=== PATIENT | male | born 1925 | race Caucasian/White ===

== ENCOUNTER 2017-03-22 15:24 | Inpatient (IN) ==
--- NOTE | 2017-03-22 16:04 | Emergency Department Note ---
Disposition Clinical Impression: Community acquired pneumonia, Aspiration pneumonia Disposition: Admitted As Inpatient Condition: Fair Referrals: Nazario Rice MD [Primary Care Provider] - Forms: ED Satisfaction Letter Time of Disposition: 18:12 ([facility]) SOB HPI - General Chief Complaint: ED Shortness of Breath/Dyspnea Stated Complaint: SOB Time Seen by Provider: 03/22/17 15:30 Source: EMS Mode of arrival: EMS Limitations: age, other Nursing Notes Reviewed: Yes Vital Signs Reviewed: Yes - History of Present Illness Elderly male sent in from a local nursing care facility possible aspiration versus pneumonia has a history of such in the past patient is nonverbal and unable to provide me with any history has been sent in by the nursing care facility they contacted the family physician in charge of him and he asked that patient be sent in to evaluate Pt Subjective Complaint: shortness of breath, cough Onset (ago): Just [employer] Context: other (Hx of aspiration) Severity: moderate Consistency/Duration: constant Improves with: nothing Worsens with: lying flat Known history of: recurrent pneumonia, aspiration pneumonia Associated symptoms: Reports: fever, cough, wheezing Treatment prior to arrival: oxygen Cough present: Yes Cough Description: Involuntary, Non-Productive Cough Frequency: Intermittent Sputum production: No Sputum Amount: Small Sputum Color: Yellow - Related Data Home Medications Medication Instructions Recorded Confirmed Acetaminophen [Tylenol] 650 mg PO Q4H PRN 06/06/16 03/22/17 Aspirin Enteric Coated [Aspirin EC] 81 mg PO DAILY 06/06/16 03/22/17 Cholestyramine 4 gm PO 0700,1600 06/06/16 03/22/17 Diltiazem HCl [Diltiazem 24Hr Cd] 120 mg PO 0700 06/06/16 03/22/17 Losartan [Cozaar] 25 mg PO 0700 06/06/16 03/22/17 Lovastatin [Mevacor] 20 mg PO 0700 06/06/16 03/22/17 Metoprolol [Lopressor] 25 mg PO 0700,1600 06/06/16 03/22/17 Sitagliptin Phos/Metformin HCl 1 each PO 0700,1600 06/06/16 03/22/17 [Janumet 50-1,000 mg Tablet] Warfarin [Coumadin] 1.5 mg PO 2XW 03/22/17 03/22/17 Warfarin [Coumadin] 2 mg PO 5XW 03/22/17 03/22/17 Allergies Allergy/AdvReac Type Severity Reaction Status Date / Time No Known Allergies Allergy Verified 06/06/16 11:25 Limitations: ROS unobtainable due to patients medical condition (Provided By the retirement) Constitutional: Reports: fever ENT ED: Reports: congestion Respiratory: Reports: cough, dyspnea, sputum production Past Medical History - Past Medical History Source: old records reviewed, nursing notes reviewed Medical history: Reports: atrial fibrillation, COPD, coronary artery disease, dementia, diabetes, GERD, hyperlipidemia, hypertension, other Surgical history: Reports: cataract, other Psychiatric history: Reports: depression - Social History Smoking Status: Never smoker Smokeless Tobacco Status: No Alcohol use: Reports: unknown Drug use: Reports: none Physical Exam - General Limitations: age, other General appearance: alert, in no apparent distress - Head Head exam: atraumatic, normocephalic, normal inspection - Eye Eye exam: Present: normal appearance, EOMI - ENT ENT exam: normal exam, normal oropharynx, mucous membranes moist, TM's normal bilaterally, normal external ear exam - Neck Neck exam: Present: normal inspection, full ROM, trachea midline - Chest Chest inspection: Present: normal inspection, symmetric chest wall rise - Respiratory Respiratory exam: Present: wheezes, prolonged expiratory phase, other (Wet raspy cough intermittent) - Cardiovascular Cardiovascular exam: Present: tachycardia, normal heart sounds - Abdominal Exam Abdominal exam: Present: soft, Non-Tender, normal bowel sounds. Absent: mass, pulsatile mass - Extremities Exam Extremities exam: Present: normal inspection, full ROM, normal capillary refill , pedal edema. Absent: tenderness, joint swelling, calf tenderness - Expanded Lower Extremity Exam Neurovascular/Tendon exam: Present: normal capillary refill, normal fine/light touch Gait: observed and normal - Back Exam Back exam: Present: normal inspection, full ROM. Absent: muscle spasm - Neurological Exam Neurological exam: Present: alert, oriented X3, CN II-XII intact, normal gait - Psychiatric Psychiatric exam: Present: normal affect, normal mood - Skin Skin exam: Present: warm, dry, intact, normal color Course Course Narrative: Patient was seen and examined patient was given aerosol treatments chest x-ray laboratory data was done with the results patient was given IV antibiotics admitted for observation transferred to same day surgery center as discussed case with Dr. Parikh Vital Signs Temperature 101.3 F H 03/22/17 15:27 Pulse Rate 110 03/22/17 15:27 Respiratory Rate 19 03/22/17 15:27 Blood Pressure 131/71 03/22/17 15:27 O2 Sat by Pulse Oximetry 94 03/22/17 15:27 Temperature 101.8 F H 03/22/17 17:01 Pulse Rate 111 03/22/17 18:08 Respiratory Rate 18 03/22/17 18:08 Blood Pressure 126/88 03/22/17 18:08 O2 Sat by Pulse Oximetry 98 03/22/17 18:08 Oxygen Delivery Oxygen Delivery Room Air Shortness of Breath/Dyspnea - MDM Narrative Medical decision making narrative: Aspiration pneumonia - Differential Diagnosis Likely: acute exacerbation of chronic obstructive airways disease, pneumonia - Medical Records Medical records reviewed: Yes I reviewed the patient's medical records. - Lab Data Lab results reviewed: Yes I reviewed the patient's lab results. Result diagrams: 03/22/17 15:58 03/22/17 15:58 Lab Results 03/22/17 03/22/17 03/22/17 Range/Units 15:58 15:58 15:58 WBC (4.3-11.1) K/mcL RBC (4.19-5.50) M/mcL Hgb (12.9-16.9) g/dL Hct (37.5-50.1) % MCV (83.0-100.0) fL MCH (28.0-33.3) pg MCHC (31.6-35.5) g/dL RDW (11.5-14.5) % Plt Count (140-400) K/mcL MPV (9.4-12.4) fL Immature Gran % (0-4) % Seg Neutrophils % % Lymphocytes % % Monocytes % % Eosinophils % % Basophils % % Neutrophils # (1.6-8.9) K/mcL Lymphocytes # (0.6-4.6) K/mcL Monocytes # (0.0-1.3) K/mcL Eosinophils # (0.0-0.6) K/mcL Basophils # (0.0-0.2) K/mcL PT (9.4-12.1) Seconds INR APTT 35.4 (26.0-36.0) Seconds Sodium 139 (136-145) mEq/L Potassium 4.1 (3.5-4.5) mEq/L Chloride 107 (98-109) mEq/L Carbon Dioxide 23 (19-29) mEq/L BUN 20 (8-26) mg/dL Creatinine 0.87 (0.72-1.25) mg/dL Est GFR ( Amer) > 60 (> 60) Est GFR (Non-Af Amer) > 60 (> 60) BUN/Creatinine Ratio 23 (6-26) Glucose 169 H (70-99) mg/dL Calculated Osmolality 295 (280-300) Lactic Acid (0.5-2.2) mmol/L Calcium 9.0 (8.6-10.8) mg/dL Magnesium (1.6-2.6) mg/dL Troponin I (0-0.03) ng/mL B-Natriuretic Peptide 320 H (0-100) pg/mL TSH (0.350-4.840) mcIU/mL 03/22/17 03/22/17 03/22/17 Range/Units 15:58 15:58 15:58 WBC 8.7 (4.3-11.1) K/mcL RBC 3.45 L (4.19-5.50) M/mcL Hgb 10.9 L (12.9-16.9) g/dL Hct 32.2 L (37.5-50.1) % MCV 93.3 (83.0-100.0) fL MCH 31.6 (28.0-33.3) pg MCHC 33.9 (31.6-35.5) g/dL RDW 13.2 (11.5-14.5) % Plt Count 237 (140-400) K/mcL MPV 10.7 (9.4-12.4) fL Immature Gran % 0.5 (0-4) % Seg Neutrophils % 86.5 % Lymphocytes % 3.7 % Monocytes % 9.0 % Eosinophils % 0.1 % Basophils % 0.2 % Neutrophils # 7.5 (1.6-8.9) K/mcL Lymphocytes # 0.3 L (0.6-4.6) K/mcL Monocytes # 0.8 (0.0-1.3) K/mcL Eosinophils # 0.0 (0.0-0.6) K/mcL Basophils # 0.0 (0.0-0.2) K/mcL PT 26.4 H (9.4-12.1) Seconds INR 2.4 APTT (26.0-36.0) Seconds Sodium (136-145) mEq/L Potassium (3.5-4.5) mEq/L Chloride (98-109) mEq/L Carbon Dioxide (19-29) mEq/L BUN (8-26) mg/dL Creatinine (0.72-1.25) mg/dL Est GFR ( Amer) (> 60) Est GFR (Non-Af Amer) (> 60) BUN/Creatinine Ratio (6-26) Glucose (70-99) mg/dL Calculated Osmolality (280-300) Lactic Acid (0.5-2.2) mmol/L Calcium (8.6-10.8) mg/dL Magnesium 1.5 L (1.6-2.6) mg/dL Troponin I (0-0.03) ng/mL B-Natriuretic Peptide (0-100) pg/mL TSH 1.442 (0.350-4.840) mcIU/mL 03/22/17 03/22/17 Range/Units 15:58 15:58 WBC (4.3-11.1) K/mcL RBC (4.19-5.50) M/mcL Hgb (12.9-16.9) g/dL Hct (37.5-50.1) % MCV (83.0-100.0) fL MCH (28.0-33.3) pg MCHC (31.6-35.5) g/dL RDW (11.5-14.5) % Plt Count (140-400) K/mcL MPV (9.4-12.4) fL Immature Gran % (0-4) % Seg Neutrophils % % Lymphocytes % % Monocytes % % Eosinophils % % Basophils % % Neutrophils # (1.6-8.9) K/mcL Lymphocytes # (0.6-4.6) K/mcL Monocytes # (0.0-1.3) K/mcL Eosinophils # (0.0-0.6) K/mcL Basophils # (0.0-0.2) K/mcL PT (9.4-12.1) Seconds INR APTT (26.0-36.0) Seconds Sodium (136-145) mEq/L Potassium (3.5-4.5) mEq/L Chloride (98-109) mEq/L Carbon Dioxide (19-29) mEq/L BUN (8-26) mg/dL Creatinine (0.72-1.25) mg/dL Est GFR ( Amer) (> 60) Est GFR (Non-Af Amer) (> 60) BUN/Creatinine Ratio (6-26) Glucose (70-99) mg/dL Calculated Osmolality (280-300) Lactic Acid 1.1 (0.5-2.2) mmol/L Calcium (8.6-10.8) mg/dL Magnesium (1.6-2.6) mg/dL Troponin I 0.00 (0-0.03) ng/mL B-Natriuretic Peptide (0-100) pg/mL TSH (0.350-4.840) mcIU/mL - Radiology Data Radiology results reviewed: Yes I reviewed the patient's radiology results. ITS Impressions Chest X-Ray 03/22/17 15:31 IMPRESSION: 1. Unchanged bibasilar airspace disease likely due to scarring, but cannot exclude underlying pneumonia. D/ / Chaitanya Villa MD / Chaitanya Villa MD Interpreting Provider: Chaitanya Villa MD - EKG Data EKG attestation: Yes I reviewed and interpreted this EKG. EKG results narrative: Sinus tach rate 109 KS 163 QRS 102 QT 301 axis -58 Critical Care Time Critical Care Time: No
[2017-03-22 16:08] LABS: Basophils % 0.2 %; Eosinophils % 0.1 %; Hematocrit 32.2 % (37.5-50.1); Hemoglobin 10.9 g/dL (12.9-16.9); Immature Granulocytes % 0.5 % (0-4); Lymphocytes # 0.3 K/mcL (0.6-4.6); Lymphocytes % 3.7 %; Mean Corpuscular HGB Conc 33.9 g/dL (31.6-35.5); Mean Corpuscular Hemoglobin 31.6 pg (28.0-33.3); Mean Corpuscular Volume 93.3 fL (83.0-100.0); Mean Platelet Volume 10.7 fL (9.4-12.4); Monocytes # 0.8 K/mcL (0.0-1.3); Neutrophils # 7.5 K/mcL (1.6-8.9); Platelet Count 237 K/mcL (140-400); Red Blood Count 3.45 M/mcL (4.19-5.50); Red Cell Distribution Width 13.2 % (11.5-14.5); Segmented Neutrophils % 86.5 %
[2017-03-22 16:15] LABS: INR 2.4; Prothrombin Time 26.4 Seconds (9.4-12.1)
[2017-03-22 16:16] LABS: Magnesium 1.5 mg/dL (1.6-2.6)
[2017-03-22] MEDS ORDERED: Azithromycin 500 MG in D5% in Water 250 ML IVPB ONE (16:19)
[2017-03-22 16:22] LABS: BUN/Creatinine Ratio 23 (6-26); Blood Urea Nitrogen 20 mg/dL (8-26); Carbon Dioxide 23 mEq/L (19-29); Chloride 107 mEq/L (98-109); Glucose 169 mg/dL (70-99); Osmolality,Calculated 295 (280-300); Potassium 4.1 mEq/L (3.5-4.5); Sodium 139 mEq/L (136-145); eGFR For African Americans > 60 (> 60); eGFR For Non-African Americans > 60 (> 60)
[2017-03-22] MEDS ORDERED: 0.9 % Sodium Chloride 1,000 ML IVC SCH (16:30)
[2017-03-22] MEDS ORDERED: D5% in Water (Mini-Bag+) 100 ML IVPB ONE (16:35)
[2017-03-22 16:42] LABS: Thyroid Stimulating Hormone 1.442 mcIU/mL (0.350-4.840)
[2017-03-22] MEDS ORDERED: Acetaminophen 325 MG TABLET PO PRN ×2 (20:07)
[2017-03-22] MEDS ORDERED: Ibuprofen 400 MG TABLET PO PRN (20:07)
[2017-03-22] MEDS ORDERED: Naloxone 0.4 MG/ML INJ IVP PRN (20:07)
[2017-03-22] MEDS ORDERED: *HR* Dextrose 50 % in Water (Syg) 50 ML SYRINGE IVP PRN (20:07)
[2017-03-22] MEDS ORDERED: D5% in Water 1,000 ML IVC PRN (20:07)
[2017-03-22] MEDS ORDERED: Dextrose Gel 15 GM PO PRN ×2 (20:07)
[2017-03-22] MEDS: Ipratropium/Albuterol Neb 3 ML IH SCH ×2 (20:48→21:50)
[2017-03-23] MEDS: Ipratropium/Albuterol Neb 3 ML IH SCH ×4 (03:44→21:29)
[2017-03-23] MEDS: 0.9 % Sodium Chloride 1,000 ML IVC SCH ×2 (07:02→16:05)
[2017-03-23] MEDS: Insulin LISPRO 300 UNITS/3 ML VIAL SQ SCH ×4 (08:12→16:14)
[2017-03-23 08:23] LABS: Basophils % 0.4 %; Hematocrit 28.9 % (37.5-50.1); Hemoglobin 9.7 g/dL (12.9-16.9); Immature Granulocytes % 0.5 % (0-4); Lymphocytes # 0.3 K/mcL (0.6-4.6); Lymphocytes % 3.6 %; Mean Corpuscular HGB Conc 33.6 g/dL (31.6-35.5); Mean Corpuscular Hemoglobin 31.3 pg (28.0-33.3); Mean Corpuscular Volume 93.2 fL (83.0-100.0); Mean Platelet Volume 11.6 fL (9.4-12.4); Monocytes # 0.9 K/mcL (0.0-1.3); Monocytes % 11.8 %; Neutrophils # 6.3 K/mcL (1.6-8.9); Platelet Count 184 K/mcL (140-400); Red Cell Distribution Width 13.5 % (11.5-14.5); Segmented Neutrophils % 83.7 %
[2017-03-23 08:28] LABS: INR 1.8; Prothrombin Time 19.8 Seconds (9.4-12.1)
[2017-03-23] MEDS: *HR* SitaGLIPtin 25 MG TABLET PO SCH ×2 (10:07→16:15)
[2017-03-23] MEDS: Aspirin Enteric Coated 81 MG Tablet PO SCH (10:07)
[2017-03-23] MEDS: Diltiazem CD (24hr) 120 MG CAPSULE PO SCH (10:07)
[2017-03-23] MEDS: *HR* Metformin 500 MG TABLET PO SCH ×2 (10:07→16:14)
[2017-03-23] MEDS: Cholestyramine 4 GM POWD.PACK PO SCH ×2 (10:15→17:19)
--- NOTE | 2017-03-23 14:45 | Internal Med History&Physical ---
Date of Encounter: 03/23/17 Time of Encounter: 14:20 Assessment and Plan (1) Aspiration pneumonia Current visit: Yes Status: Acute March 23. He will be given Rocephin and Zithromax with Lactobacillus. Repeat labs will be ordered in a.m. Qualifiers: Aspiration pneumonia type: unspecified Laterality: bilateral Lung location: lower lobe of lung Qualified Code(s): J69.0 - Pneumonitis due to inhalation of food and vomit (2) Atrial fibrillation Current visit: No Status: Chronic March 23. Continue Coumadin and aspirin. Qualifiers: Atrial fibrillation type: chronic Qualified Code(s): I48.2 - Chronic atrial fibrillation (3) Hypertension Current visit: No Status: Chronic March 23. Continue losartan and metoprolol. Qualifiers: Hypertension type: essential hypertension Qualified Code(s): I10 - Essential (primary) hypertension (4) Anemia Current visit: Yes Status: Acute We will order anemia testing in a.m. Qualifiers: Anemia type: unspecified type Qualified Code(s): D64.9 - Anemia, unspecified (5) Weight loss Current visit: Yes Status: Acute Etiology is not obvious. Will not do aggressive workup in view of his age and underlying physical and mental status. Internal Medicine - H&P: HPI Chief complaint: Dyspnea Admitted From: Emergency Dept Plans for Post Hospital Care: Transfer Long Term Facility History of present illness: Mr. Gould is a 89 year old male who was sent to emergency room from [facility] after staff felt he possibly aspirated and developed pneumonia. He was evaluated in emergency room and was felt to possibly have bibasilar pneumonia. He was admitted to [facility] floor for ongoing care needs. He has dementia and could not give any history. Past Med Surg Social Fam HX - Past Medical History Medical history: atrial fibrillation, COPD, coronary artery disease, dementia, diabetes, GERD, hyperlipidemia, hypertension, other Psychiatric history: depression - Past Surgical History Surgical History: cataract, other - Social History Smoking Status: Never smoker Smokeless Tobacco Status: No Alcohol use: unknown Drug use: none Internal Medicine - H&P: Meds Acetaminophen [Tylenol] 650 mg PO Q4H PRN 06/06/16 [History] Aspirin Enteric Coated [Aspirin EC] 81 mg PO DAILY 06/06/16 [History] Cholestyramine 4 gm PO 0700,1600 06/06/16 [History] Diltiazem HCl [Diltiazem 24Hr Cd] 120 mg PO 0700 06/06/16 [History] Losartan [Cozaar] 25 mg PO 0700 06/06/16 [History] Lovastatin [Mevacor] 20 mg PO 0700 06/06/16 [History] Metoprolol [Lopressor] 25 mg PO 0700,1600 06/06/16 [History] Sitagliptin Phos/Metformin HCl [Janumet 50-1,000 mg Tablet] 1 each PO 0700,1600 06/06/16 [History] Warfarin [Coumadin] 1.5 mg PO 2XW 03/22/17 [History] Warfarin [Coumadin] 2 mg PO 5XW 03/22/17 [History] 3 Allergy/AdvReac Type Severity Reaction Status Date / Time No Known Allergies Allergy Verified 06/06/16 11:25 All Systems PM: A 10-system review of systems was performed and is negative for pertinent findings except as documented above in the HPI. Review of systems: Review of systems is obtained from review of old chart. Gen.: His weight has decreased from 83.776 kg on 02/11/2016 to 67.767 kg today. Cardiovascular: He has history of hypertension, atrial fibrillation, and ASHD not otherwise specified. There is no mention of heart failure DVT or pulmonary embolism Respiratory: He was reported to be a lifelong nonsmoker and has no known chronic lung disease GI: He has GERD but no mention of disorders of liver gallbladder or exocrine pancreas : No mention of hematuria dysuria or kidney stones Neurologic: He has dementia. There is no mention of large distribution strokes or seizures. Endocrine: He has DM 2, duration unknown. Hemoglobin A1c was 6.5% on 2016. There is no known thyroid disease or hyperlipidemia Hematology/oncology: He has had progressive anemia over several months. No documented internal malignancies. Psychiatric: No mention of anxiety depression or other mental health issues Musk skeletal: No mention of arthritis gout or other bone joint or muscle disorders. - Constitutional Vitals: Temp Pulse Resp BP Pulse Ox 98.3 F 105 17 106/52 95 03/23/17 10:28 03/23/17 10:28 03/23/17 10:28 03/23/17 10:28 03/23/17 10:28 Exam: Gen.: He is a well-developed well-nourished male lying quietly in bed who appears slightly dyspneic at rest HEENT: Head is atraumatic and normocephalic. Eyes: He has a cystic area in his left upper eyelid measuring approximately 10-12 mm diameter. There is no scleral icterus. Mouth: Mucosa is moist Neck: Supple and nontender. There is no thyromegaly or adenopathy noted. Heart: Irregularly irregular with rate 84/m. Lungs: No wheezes or crackles are heard. Abdomen: Soft and nontender. No masses or guarding are noted. Extremities: There is no cyanosis edema or clubbing noted. Dorsalis pedis and posterior tibial pulses are trace palpable bilaterally. Neurologic: Mental status: He opens his eyes to voice or light touch but is not conversational. Cranial nerves: He does not move his facial muscle spontaneously or on command. Motor: He has stiffness on passive range of motion of his arms and wrist. He does not move spontaneously. No further neurologic testing is attempted. Skin: He has multiple healing scabbed 1-2 mm lesions primarily on his left hemithorax extending around to the midline abdominal area. No vesicles are seen. There are a few similar lesions on various dermatomes on his right side. Internal Med - H&P Results - Labs CBC & Chem 7: 03/23/17 07:33 03/22/17 15:58 Labs: Short CBC 03/23/17 Range/Units 07:33 WBC 7.6 (4.3-11.1) K/mcL Hgb 9.7 L (12.9-16.9) g/dL Hct 28.9 L (37.5-50.1) % Plt Count 184 (140-400) K/mcL Neutrophils # 6.3 (1.6-8.9) K/mcL
[2017-03-23] MEDS: 0.45 % Sodium Chloride w/KCl 20 MEQ/1,000 ML MLS IVC SCH (16:07)
[2017-03-23] MEDS: Azithromycin 500 MG in D5% in Water 250 ML IVPB SCH (16:08)
[2017-03-23] MEDS: cefTRIAXone 1,000 MG in Water for inj. (sterile) 20 ML 10 ML IVP SCH (17:25)
[2017-03-23] MEDS: Lactobacillus 1 EACH CAP.SPRINK PO SCH ×2 (17:28→21:04)
[2017-03-23] MEDS ORDERED: *HR* Warfarin 2 MG TABLET PO SCH (18:00)
--- NOTE | 2017-03-23 18:14 | Electrocardiograph Report ---
[address] [address] Test Date: 2017-03-22 Pat Name: Brian Gould Department: [id number] Room: [facility] Gender: M Professor Of Voice: [id number] : [id number] Requested By: Tia Head Order Number: [id number] Reading MD: Andre Trpiathi Measurements Intervals [place] Rate: 109 P: 91 HI: 163 QRS: -58 QRSD: 102 T: 81 QT: 301 QTc: 365 Interpretive Statements SINUS TACHYCARDIA WITH OCCASIONAL VENTRICULAR PREMATURE COMPLEXES WITH OCCASIONAL SUPRAVENTRICULAR PREMATURE COMPLEXES MARKED LEFT AXIS DEVIATION Electronically Signed On 03-23-2017 18:12:40 EST by Andre Tripathi
[2017-03-24] MEDS: Ipratropium/Albuterol Neb 3 ML IH SCH ×2 (03:51→09:14)
[2017-03-24 06:46] LABS: Basophils % 0.5 %; Hemoglobin 9.7 g/dL (12.9-16.9); Immature Granulocytes % 0.2 % (0-4); Lymphocytes # 0.6 K/mcL (0.6-4.6); Lymphocytes % 14.4 %; Mean Corpuscular HGB Conc 33.4 g/dL (31.6-35.5); Mean Corpuscular Hemoglobin 31.3 pg (28.0-33.3); Mean Corpuscular Volume 93.5 fL (83.0-100.0); Mean Platelet Volume 11.7 fL (9.4-12.4); Monocytes # 0.6 K/mcL (0.0-1.3); Monocytes % 13.4 %; Platelet Count 175 K/mcL (140-400); Red Cell Distribution Width 13.9 % (11.5-14.5); Segmented Neutrophils % 71.5 %
[2017-03-24 06:52] LABS: INR 1.4; Prothrombin Time 14.7 Seconds (9.4-12.1)
[2017-03-24 07:07] LABS: BUN/Creatinine Ratio 25 (6-26); Blood Urea Nitrogen 27 mg/dL (8-26); Calcium 8.1 mg/dL (8.6-10.8); Carbon Dioxide 21 mEq/L (19-29); Chloride 109 mEq/L (98-109); Glucose 99 mg/dL (70-99); Osmolality,Calculated 293 (280-300); Potassium 3.9 mEq/L (3.5-4.5); Sodium 139 mEq/L (136-145); eGFR For African Americans > 60 (> 60); eGFR For Non-African Americans > 60 (> 60)
[2017-03-24] MEDS ORDERED: *HR* SitaGLIPtin 25 MG TABLET PO SCH (08:00)
[2017-03-24] MEDS: Lactobacillus 1 EACH CAP.SPRINK PO SCH ×2 (09:04→22:49)
[2017-03-24] MEDS: Oseltamivir Phosphate 30 MG CAPSULE PO SCH ×2 (09:04→22:49)
[2017-03-24] MEDS: Aspirin Enteric Coated 81 MG Tablet PO SCH (09:04)
[2017-03-24] MEDS: *HR* SitaGLIPtin 25 MG TABLET PO SCH (09:04)
[2017-03-24] MEDS: Insulin LISPRO 300 UNITS/3 ML VIAL SQ SCH ×3 (09:04→17:08)
[2017-03-24] MEDS: Diltiazem CD (24hr) 120 MG CAPSULE PO SCH (09:05)
[2017-03-24 09:40] LABS: % Iron Saturation 4 % (20-55); Ferritin 251 ng/ml (20-250); Iron 10 mcg/dL (65-175); Transferrin 163 mg/dL (203-362)
[2017-03-24] MEDS: Cholestyramine 4 GM POWD.PACK PO SCH ×2 (09:47→17:11)
[2017-03-24 11:48] LABS: Anisocytosis 1+ (Not Present); Platelet Estimate Normal (Normal); Toxic Granulation Present (Not Present); Toxic Vacuolation Present (Not Present)
[2017-03-24] MEDS: 0.45 % Sodium Chloride w/KCl 20 MEQ/1,000 ML MLS IVC SCH (13:10)
--- NOTE | 2017-03-24 13:51 | Internal Med Progress Note ---
Date of Encounter: 03/24/17 Time of Encounter: 13:40 - Assessment and plan (1) Aspiration pneumonia Current Visit: Yes Status: Acute Assessment and plan: March 24. Continue Rocephin and Zithromax with lactobacillus. The left shift on WBC differential has resolved. Qualifiers: Aspiration pneumonia type: unspecified Laterality: bilateral Lung location: lower lobe of lung Qualified Code(s): J69.0 - Pneumonitis due to inhalation of food and vomit (2) Atrial fibrillation Current Visit: No Status: Chronic Assessment and plan: March 24. Continue Coumadin and aspirin. Will discontinue diltiazem due to borderline hypotension. Will use Lanoxin and metoprolol for rate control. Qualifiers: Atrial fibrillation type: chronic Qualified Code(s): I48.2 - Chronic atrial fibrillation (3) Hypertension Current Visit: No Status: Chronic Assessment and plan: March 24. Will discontinue diltiazem since blood pressure is borderline low. Continue Cozaar and metoprolol. Qualifiers: Hypertension type: essential hypertension Qualified Code(s): I10 - Essential (primary) hypertension (4) Anemia Current Visit: Yes Status: Acute Assessment and plan: March 24. Anemia testing showed iron 10, transferrin saturation 4%, transferrin 163, ferritin 251, and B12 94. We will give IM B12 and IV iron dextran. Qualifiers: Anemia type: unspecified type Qualified Code(s): D64.9 - Anemia, unspecified (5) Weight loss Current Visit: Yes Status: Acute Assessment and plan: March 24. When asked about his weight loss he replied he is "just not eating ". Since he is more alert and talkative today I will proceed with CT of chest abdomen and pelvis. (6) Hypomagnesemia Current Visit: Yes Status: Acute Assessment and plan: March 24. Magnesium level was 1.5 on March 22. Will give supplemental magnesium - Subjective Interval history: March 24. He has no new complaints. - Constitutional Vitals: Temp Pulse Resp BP Pulse Ox 97.8 F 100 18 97/58 94 03/24/17 10:00 03/24/17 10:00 03/24/17 10:00 03/24/17 10:03/24/17 10:00 Exam: He is resting comfortably in bed and denies pain or dyspnea. He is more alert today. He is hard of hearing. His affect is bright and cheerful. I reviewed his medications and lab results. Internal Medicine: Result - Labs CBC & Chem 7: 03/24/17 05:19 03/24/17 05:19 Labs: Short CBC 03/24/17 Range/Units 05:19 WBC 4.2 L (4.3-11.1) K/mcL Hgb 9.7 L (12.9-16.9) g/dL Hct 29.0 L (37.5-50.1) % Plt Count 175 (140-400) K/mcL Neutrophils # 3.0 (1.6-8.9) K/mcL BMP 03/24/17 05:19 Sodium 139 Potassium 3.9 Chloride 109 Carbon Dioxide 21 BUN 27 H Creatinine 1.06 Glucose 99 Calcium 8.1 L - ABG Interpretation ABG results: PT/INR, D-dimer PT 14.7 Seconds (9.4-12.1) H 03/24/17 05:19 Consult Discharge Plan - Plan Referrals: Nazario Rice MD [Primary Care Provider] - 1 week
[2017-03-24] MEDS ORDERED: Cyanocobalamin (B-12) 1,000 MCG/ML VIAL IM ONE (13:56)
[2017-03-24] MEDS ORDERED: Albuterol 2.5 MG/3 ML NEBULIZER IH PRN (14:05)
[2017-03-24] MEDS: cefTRIAXone 1,000 MG in Water for inj. (sterile) 20 ML 10 ML IVP SCH (14:59)
[2017-03-24] MEDS ORDERED: SODIUM CHLORIDE 0.9% IVPB ONE (15:00)
[2017-03-24] MEDS ORDERED: IRON DEXTRAN COMPLEX IVPB ONE (15:00)
[2017-03-24] MEDS: Magnesium Oxide 400 MG TABLET PO SCH ×2 (15:01→22:49)
[2017-03-24] MEDS: *HR* Digoxin 0.125 MG TABLET PO SCH (15:01)
[2017-03-24] MEDS: Finasteride 5 MG TABLET PO SCH (17:13)
[2017-03-24] MEDS: Azithromycin 500 MG in D5% in Water 250 ML IVPB SCH (17:53)
[2017-03-25] MEDS ORDERED: *HR* Warfarin 2 MG TABLET PO SCH ×2 (09:00→18:00)
[2017-03-25] MEDS: Finasteride 5 MG TABLET PO SCH (10:13)
[2017-03-25] MEDS: Insulin LISPRO 300 UNITS/3 ML VIAL SQ SCH ×3 (10:15→17:33)
[2017-03-25] MEDS: *HR* SitaGLIPtin 25 MG TABLET PO SCH (10:15)
[2017-03-25] MEDS: Aspirin Enteric Coated 81 MG Tablet PO SCH (10:15)
[2017-03-25] MEDS: Oseltamivir Phosphate 30 MG CAPSULE PO SCH ×2 (10:15→20:49)
[2017-03-25] MEDS: Magnesium Oxide 400 MG TABLET PO SCH ×2 (10:16→20:49)
[2017-03-25] MEDS: *HR* Digoxin 0.125 MG TABLET PO SCH (10:16)
[2017-03-25] MEDS: Lactobacillus 1 EACH CAP.SPRINK PO SCH ×2 (10:16→20:49)
[2017-03-25] MEDS: Cholestyramine 4 GM POWD.PACK PO SCH ×2 (10:34→17:22)
--- NOTE | 2017-03-25 11:19 | Internal Med Progress Note ---
Date of Encounter: 03/25/17 Time of Encounter: 11:10 - Assessment and plan (1) Aspiration pneumonia Current Visit: Yes Status: Acute Assessment and plan: March 24. Continue Rocephin and Zithromax with lactobacillus. The left shift on WBC differential has resolved. March 25. Recheck labs in a.m. Anticipate discharge tomorrow if stable. Qualifiers: Aspiration pneumonia type: unspecified Laterality: bilateral Lung location: lower lobe of lung Qualified Code(s): J69.0 - Pneumonitis due to inhalation of food and vomit (2) Atrial fibrillation Current Visit: No Status: Chronic Assessment and plan: March 24. Continue Coumadin and aspirin. Will discontinue diltiazem due to borderline hypotension. Will use Lanoxin and metoprolol for rate control. March 25. Continue Coumadin, aspirin, Lanoxin, and metoprolol. We will check dig level and pro time in a.m. Qualifiers: Atrial fibrillation type: chronic Qualified Code(s): I48.2 - Chronic atrial fibrillation (3) Hypertension Current Visit: No Status: Chronic Assessment and plan: March 24. Will discontinue diltiazem since blood pressure is borderline low. Continue Cozaar and metoprolol. March 25. Continue Cozaar and metoprolol Qualifiers: Hypertension type: essential hypertension Qualified Code(s): I10 - Essential (primary) hypertension (4) Anemia Current Visit: Yes Status: Acute Assessment and plan: March 24. Anemia testing showed iron 10, transferrin saturation 4%, transferrin 163, ferritin 251, and B12 94. We will give IM B12 and IV iron dextran. March 25. Will recheck CBC in a.m. Qualifiers: Anemia type: unspecified type Qualified Code(s): D64.9 - Anemia, unspecified (5) Weight loss Current Visit: Yes Status: Acute Assessment and plan: March 24. When asked about his weight loss he replied he is "just not eating ". Since he is more alert and talkative today I will proceed with CT of chest abdomen and pelvis. March 25. CT of chest, abdomen, and pelvis did not show worrisome pathology. TSH was normal at 1.442 (6) Hypomagnesemia Current Visit: Yes Status: Acute Assessment and plan: March 24. Magnesium level was 1.5 on March 22. Will give supplemental magnesium March 25. Will check magnesium level in a.m. - Subjective Interval history: March 24. He has no new complaints. March 25. He has no new complaints. - Constitutional Vitals: Temp Pulse Resp BP Pulse Ox 97.4 F L 85 20 96/61 92 03/25/17 10:00 03/25/17 10:00 03/25/17 10:00 03/25/17 10:00 03/25/17 10:00 Exam: He is resting comfortably in bed and appears in no acute distress. He is more alert and talkative today. I reviewed his medications and lab results. Internal Medicine: Result - Labs CBC & Chem 7: 03/24/17 05:19 03/24/17 05:19 Labs: Short CBC 03/24/17 Range/Units 05:19 Neutrophils # 3.0 (1.6-8.9) K/mcL - ABG Interpretation ABG results: PT/INR, D-dimer PT 14.7 Seconds (9.4-12.1) H 03/24/17 05:19 - Impressions Impressions Abdomen/Pelvis CT 03/24/17 13:59 IMPRESSION: 1. Although motion artifact limits evaluation, bilateral lower lobe pneumonia is present with small bilateral pleural effusions. Additional foci of infection are suspected in the right upper and middle lobes, as well as the base of the left upper lobe. 2. Mild mediastinal lymphadenopathy, which may be reactive. 3. Marked distention of the bladder, with mild bilateral hydronephrosis and hydroureter. There is moderate to severe enlargement of the prostate. 4. Moderate diverticulosis, without evidence of diverticulitis. 5. Trace ascites is suspected along the paracolic gutters. 6. Gallstones. 7. Coronary atherosclerosis. D/ / 03/24/2017 16:51:48 Will Espinal MD / [facility] Interpreting Provider: Will Espinal MD Chest CT 03/24/17 13:59 IMPRESSION: 1. Although motion artifact limits evaluation, bilateral lower lobe pneumonia is present with small bilateral pleural effusions. Additional foci of infection are suspected in the right upper and middle lobes, as well as the base of the left upper lobe. 2. Mild mediastinal lymphadenopathy, which may be reactive. 3. Marked distention of the bladder, with mild bilateral hydronephrosis and hydroureter. There is moderate to severe enlargement of the prostate. 4. Moderate diverticulosis, without evidence of diverticulitis. 5. Trace ascites is suspected along the paracolic gutters. 6. Gallstones. 7. Coronary atherosclerosis. D/ / 03/24/2017 16:51:48 Will Espinal MD / [facility] Interpreting Provider: Will Espinal MD Consult Discharge Plan - Plan Referrals: Nazario Rice MD [Primary Care Provider] - 1 week
[2017-03-25] MEDS: 0.45 % Sodium Chloride w/KCl 20 MEQ/1,000 ML MLS IVC SCH (13:08)
[2017-03-25] MEDS: cefTRIAXone 1,000 MG in Water for inj. (sterile) 20 ML 10 ML IVP SCH (17:03)
[2017-03-25] MEDS: Azithromycin 500 MG in D5% in Water 250 ML IVPB SCH (17:23)
[2017-03-26 05:26] LABS: Basophils % 0.3 %; Eosinophils % 0.3 %; Hematocrit 28.9 % (37.5-50.1); Hemoglobin 9.8 g/dL (12.9-16.9); Immature Granulocytes % 0.6 % (0-4); Lymphocytes # 0.5 K/mcL (0.6-4.6); Lymphocytes % 16.4 %; Mean Corpuscular HGB Conc 33.9 g/dL (31.6-35.5); Mean Corpuscular Hemoglobin 31.2 pg (28.0-33.3); Mean Platelet Volume 11.1 fL (9.4-12.4); Monocytes # 0.5 K/mcL (0.0-1.3); Monocytes % 17.4 %; Platelet Count 153 K/mcL (140-400); Red Blood Count 3.14 M/mcL (4.19-5.50); Red Cell Distribution Width 13.5 % (11.5-14.5)
[2017-03-26 05:32] LABS: INR 1.9; Prothrombin Time 20.9 Seconds (9.4-12.1)
[2017-03-26 05:47] LABS: Alanine Aminotransferase 10 Units/L (0-55); Albumin/Globulin Ratio 0.7 (1.1-2.2); Alkaline Phosphatase 44 Units/L (38-126); Aspartate Amino Transferase 20 Units/L (5-34); BUN/Creatinine Ratio 22 (6-26); Bilirubin,Total 0.2 mg/dL (0.2-1.2); Blood Urea Nitrogen 17 mg/dL (8-26); Calcium 8.1 mg/dL (8.6-10.8); Carbon Dioxide 22 mEq/L (19-29); Chloride 109 mEq/L (98-109); Globulin 2.8 g/dL (2.4-3.5); Glucose 80 mg/dL (70-99); Magnesium 1.4 mg/dL (1.6-2.6); Osmolality,Calculated 289 (280-300); Potassium 3.5 mEq/L (3.5-4.5); Sodium 139 mEq/L (136-145); Total Protein 4.7 g/dL (6.0-8.3); eGFR For African Americans > 60 (> 60); eGFR For Non-African Americans > 60 (> 60)
[2017-03-26 05:56] LABS: Digoxin < 0.3 ng/mL (0.8-2.0)
[2017-03-26 06:42] LABS: Albumin 1.9 g/dL (3.5-5.0)
[2017-03-26] MEDS: Cholestyramine 4 GM POWD.PACK PO SCH (06:59)
[2017-03-26 07:40] LABS: Anisocytosis 1+ (Not Present); Hypochromasia Present (Not Present); Platelet Estimate Normal (Normal); Toxic Granulation Present (Not Present)
[2017-03-26] MEDS: Oseltamivir Phosphate 30 MG CAPSULE PO SCH (09:03)
[2017-03-26] MEDS: *HR* Digoxin 0.125 MG TABLET PO SCH (09:05)
[2017-03-26] MEDS: Finasteride 5 MG TABLET PO SCH (09:05)
[2017-03-26] MEDS: Magnesium Oxide 400 MG TABLET PO SCH (09:05)
[2017-03-26] MEDS: Lactobacillus 1 EACH CAP.SPRINK PO SCH (09:06)
[2017-03-26] MEDS: Aspirin Enteric Coated 81 MG Tablet PO SCH (09:06)
[2017-03-26] MEDS: Insulin LISPRO 300 UNITS/3 ML VIAL SQ SCH (09:06)
[2017-03-26] MEDS: 0.45 % Sodium Chloride w/KCl 20 MEQ/1,000 ML MLS IVC SCH (09:06)
[2017-03-26] MEDS: *HR* SitaGLIPtin 25 MG TABLET PO SCH (09:06)
--- NOTE | 2017-03-26 10:00 | Discharge Summary ---
Date of Encounter: 03/26/17 Time of Encounter: 09:40 - Discharge Diagnosis (1) Aspiration pneumonia Priority: Primary Status: Acute Qualifiers: Aspiration pneumonia type: unspecified Laterality: bilateral Lung location: lower lobe of lung Qualified Code(s): J69.0 - Pneumonitis due to inhalation of food and vomit (2) Influenza Priority: Secondary Status: Acute (3) Atrial fibrillation Priority: Secondary Status: Chronic Qualifiers: Atrial fibrillation type: chronic Qualified Code(s): I48.2 - Chronic atrial fibrillation (4) Hypertension Priority: Secondary Status: Chronic Qualifiers: Hypertension type: essential hypertension Qualified Code(s): I10 - Essential (primary) hypertension (5) Anemia Priority: Secondary Status: Acute Qualifiers: Anemia type: unspecified type Qualified Code(s): D64.9 - Anemia, unspecified (6) Weight loss Priority: Secondary Status: Acute (7) Hypomagnesemia Priority: Secondary Status: Acute (8) Urinary retention due to benign prostatic hyperplasia Priority: Secondary Status: Acute - Discharge Medications Prescriptions: Cefuroxime PO [Ceftin] 500 mg PO Q12HR #8 tablet Azithromycin [Zithromax] 250 mg PO DAILY #4 tablet Digoxin [Lanoxin] 0.125 mg PO DAILY #30 tablet Finasteride [Proscar] 5 mg PO DAILY #30 tablet Lactobacillus [Culturelle] 1 each PO BID #8 cap.sprink Magnesium Oxide [Mag-Ox] 400 mg PO BID #14 tablet Oseltamivir Phosphate [Tamiflu] 30 mg PO BID #8 capsule Tamsulosin [Flomax] 0.8 mg PO DAILY #60 capsule Home Medications: Acetaminophen [Tylenol] 650 mg PO Q4H PRN 06/06/16 [History] Aspirin Enteric Coated [Aspirin EC] 81 mg PO DAILY 06/06/16 [History] Cholestyramine 4 gm PO 0700,1600 06/06/16 [History] Losartan [Cozaar] 25 mg PO 0700 06/06/16 [History] Lovastatin [Mevacor] 20 mg PO 0700 06/06/16 [History] Metoprolol [Lopressor] 25 mg PO 0700,1600 06/06/16 [History] Sitagliptin Phos/Metformin HCl [Janumet 50-1,000 mg Tablet] 1 each PO 0700,1600 06/06/16 [History] Warfarin [Coumadin] 1.5 mg PO 2XW 03/22/17 [History] Warfarin [Coumadin] 2 mg PO 5XW 03/22/17 [History] Azithromycin [Zithromax] 250 mg PO DAILY #4 tablet 03/26/17 [Rx] Cefuroxime PO [Ceftin] 500 mg PO Q12HR #8 tablet 03/26/17 [Rx] Digoxin [Lanoxin] 0.125 mg PO DAILY #30 tablet 03/26/17 [Rx] Finasteride [Proscar] 5 mg PO DAILY #30 tablet 03/26/17 [Rx] Lactobacillus [Culturelle] 1 each PO BID #8 cap.sprink 03/26/17 [Rx] Magnesium Oxide [Mag-Ox] 400 mg PO BID #14 tablet 03/26/17 [Rx] Oseltamivir Phosphate [Tamiflu] 30 mg PO BID #8 capsule 03/26/17 [Rx] Tamsulosin [Flomax] 0.8 mg PO DAILY #60 capsule 03/26/17 [Rx] Allergies/Adverse Reactions: 3 Allergy/AdvReac Type Severity Reaction Status Date / Time No Known Allergies Allergy Verified 06/06/16 11:25 Procedures/tests Complete & Pending: Procedures Performed prior 72 hours Category Date Time Status CT abd pelvis wo no iv no oral [CT] Routine Cat Scan 03/24/17 13:[address] chest wo con [CT] Routine Cat Scan 03/24/17 13:59 Draft Date of admission: 03/23/17 15:41 Primary care physician: Nazario Rice MD - Patient Status Disposition: Transfer SNF Condition: Fair Overall status at discharge: patient is progressing back to baseline - Discharge Instructions Follow Up With: Nazario Rice MD [Primary Care Provider] - 1 week - Diet and Activity Activity: resume usual activities as tolerated Diet: advance to your usual diet Hospital course: Mr. Gould is a 89 year old male who was sent to emergency room from [facility] after staff felt he possibly aspirated and developed pneumonia. He was evaluated in emergency room and was felt to possibly have bibasilar pneumonia. He was admitted to Med[facility] floor for ongoing care needs. Initial orders were written by the emergency room physician. I saw him on March 23 and performed the history and physical. He was started on Rocephin , Zithromax and lactobacillus for pneumonia. He was started on Tamiflu for influenza A. He had good clinical response and remained afebrile after the first hospital day. He continue with Tamiflu, antibiotic and probiotic for 4 additional days after discharge. Anemia testing showed iron 10, transferrin saturation 4%, transferrin 163, ferritin 251, B12 94, and folate 30. He was given IV iron dextran infusion and B12 injection IM. He will continue with oral B12 supplement daily at discharge. Magnesium level returned low and he was started on magnesium oxide. His PCP can monitor this. He had CT of abdomen pelvis and chest to further evaluate his weight loss. There was bilateral lower lobe pneumonia present with mild mediastinal lymphadenopathy, possibly reactive. He had marked bladder distention with mild bilateral hydronephrosis and hydroureter with [id number] enlargement of prostate. A Ji catheter was placed for bladder decompression. He was started on Proscar and Flomax and these will be continued at discharge. His mental status returned to what I felt was baseline. He was pleasant but confused at times. He will be discharged back to [facility] and follow with Dr. Rice. - Time Spent with Patient Total time spent providing and/or coordinating discharge services: - Constitutional Vitals: Temp Pulse Resp BP Pulse Ox 97.7 F 112 18 124/72 90 03/26/17 06:09 03/26/17 06:09 03/26/17 06:09 03/26/17 06:09 03/26/17 06:09
--- NOTE | 2017-03-26 10:17 | Physician Discharge Referral ---
[facility] Referral Info Transfer To: [facility] Provider in Charge: Jl Provider in Charge after Transfer: PCP (Nazario Rice M.D.) - Diagnosis (1) Aspiration pneumonia Priority: Primary Status: Acute (2) Influenza Priority: Secondary Status: Acute (3) Atrial fibrillation Priority: Secondary Status: Chronic (4) Hypertension Priority: Secondary Status: Chronic (5) Anemia Priority: Secondary Status: Acute (6) Weight loss Priority: Secondary Status: Acute (7) Hypomagnesemia Priority: Secondary Status: Acute (8) Urinary retention due to benign prostatic hyperplasia Priority: Secondary Status: Acute Prognosis: Fair Aware of Diagnosis: Patient Aware of Prognosis: Patient - Transfer Medications Prescriptions: Cefuroxime PO [Ceftin] 500 mg PO Q12HR #8 tablet Azithromycin [Zithromax] 250 mg PO DAILY #4 tablet Digoxin [Lanoxin] 0.125 mg PO DAILY #30 tablet Finasteride [Proscar] 5 mg PO DAILY #30 tablet Lactobacillus [Culturelle] 1 each PO BID #8 cap.sprink Magnesium Oxide [Mag-Ox] 400 mg PO BID #14 tablet Oseltamivir Phosphate [Tamiflu] 30 mg PO BID #8 capsule Tamsulosin [Flomax] 0.8 mg PO DAILY #60 capsule Home Medications: Acetaminophen [Tylenol] 650 mg PO Q4H PRN 06/06/16 [History] Aspirin Enteric Coated [Aspirin EC] 81 mg PO DAILY 06/06/16 [History] Cholestyramine 4 gm PO 0700,1600 06/06/16 [History] Losartan [Cozaar] 25 mg PO 0700 06/06/16 [History] Lovastatin [Mevacor] 20 mg PO 0700 06/06/16 [History] Metoprolol [Lopressor] 25 mg PO 0700,1600 06/06/16 [History] Sitagliptin Phos/Metformin HCl [Janumet 50-1,000 mg Tablet] 1 each PO 0700,1600 06/06/16 [History] Warfarin [Coumadin] 1.5 mg PO 2XW 03/22/17 [History] Warfarin [Coumadin] 2 mg PO 5XW 03/22/17 [History] Azithromycin [Zithromax] 250 mg PO DAILY #4 tablet 03/26/17 [Rx] Cefuroxime PO [Ceftin] 500 mg PO Q12HR #8 tablet 03/26/17 [Rx] Digoxin [Lanoxin] 0.125 mg PO DAILY #30 tablet 03/26/17 [Rx] Finasteride [Proscar] 5 mg PO DAILY #30 tablet 03/26/17 [Rx] Lactobacillus [Culturelle] 1 each PO BID #8 cap.sprink 03/26/17 [Rx] Magnesium Oxide [Mag-Ox] 400 mg PO BID #14 tablet 03/26/17 [Rx] Oseltamivir Phosphate [Tamiflu] 30 mg PO BID #8 capsule 03/26/17 [Rx] Tamsulosin [Flomax] 0.8 mg PO DAILY #60 capsule 03/26/17 [Rx] Allergies/Adverse Reactions: 3 Allergy/AdvReac Type Severity Reaction Status Date / Time No Known Allergies Allergy Verified 06/06/16 11:25 - Respiratory Orders Smoking Cessation: Smoking cessation has been advised. For more information, call the [place] Tobacco Quit Line at 9-857-LRYK-NOW. - Lab Orders Lab Orders: Other (include drug levels w/frequency) (CBC with differential, CMP , dig level, magnesium level in 1 week) CERTIFICATION: I certify that the transfer of the above named patient to an Extended Care Facility is necessary for the continuing treatment of the diagnosis listed. The above information is true and accurate reflection of patient's current condition. Confidential - Redisclosure prohibited without a patient's written consent.
[2017-03-26 11:55] VITALS: BP 84/57
[2017-03-26] MEDS ORDERED: *HR* Warfarin 1 MG TABLET PO SCH (18:00)
== END 2017-03-26 13:00 | DRG 178 ==
LOC: INPPIK 15:24 → EMEROOPIK 15:24 → INPPIK 20:00
PROVIDERS: ADMIT Internal Medicine; ATTEND Internal Medicine